=== PATIENT | male | born 1955 ===

== ENCOUNTER 2018-04-22 17:31 | Emergency (ER) | payer MEDICAID, OTHER ==
[2018-04-22 17:31] VITALS: BMI 25.0
[2018-04-22 17:43] VITALS: TEMP 97.9
[2018-04-22] MEDS ORDERED: DiphenhydrAMINE 50 mg/ml Inj IVP ONE (18:06)
--- NOTE | 2018-04-22 18:15 | ED PDOC ---
Arrival/HPI - General Chief Complaint: Headache Time Seen by Provider: 04/22/18 17:38 Historian: Patient - History of Present Illness Narrative History of Present Illness (Text): 04/22/18 18:07 62yo male with no pmhx who present with complaint of sharp left temporal headache. The family member by the bedside states he has been having this headache intermittently for months now. States he made appointment with a Doctor last week and his appointment is for next week. States he takes Aleve with some temporary relieve. Denies focal weakness, eye pain, visual changes, dizziness, trauma, neck pain, nuchal rigity, rash, chest pain, SOB, slurred speech, photophobia, nausea, vomiting, any other complaint. Past Medical History - Provider Review Nursing Documentation Reviewed: Yes - Cardiac Hx Cardiac Disorders: No - Pulmonary Hx Respiratory Disorders: No - Neurological Hx Neurological Disorder: No - HEENT Hx HEENT Disorder: No - Renal Hx Renal Disorder: No - Endocrine/Metabolic Hx Endocrine Disorders: No - Hematological/Oncological Hx Blood Disorders: No - Integumentary Hx Dermatological Disorder: No - Musculoskeletal/Rheumatological Hx Musculoskeletal Disorders: No - Gastrointestinal Hx Gastrointestinal Disorders: Yes Hx Gastroesophageal Reflux: Yes - Genitourinary/Gynecological Hx Genitourinary Disorders: No - Psychiatric Hx Psychophysiologic Disorder: No Hx Psychosis: No Hx Physical Abuse: No Hx Substance Use: No - Anesthesia Hx Anesthesia Reactions: No Hx Malignant Hyperthermia: No - Suicidal Assessment Feels Threatened In Home Enviroment: No Family/Social History - Physician Review Nursing Documentation Reviewed: Yes Family/Social History: Unknown Family HX Smoking Status: Light Smoker < 10 Cigarettes Daily Hx Alcohol Use: Yes Frequency of alcohol use: Socially Hx Substance Use: No Allergies/Home Meds Allergies/Adverse Reactions: Allergies No Known Allergies Allergy (Verified 04/22/18 17:37) Home Medications: Home Meds Medication Instructions Recorded Confirmed Omeprazole [Omeprazole] 40 mg PO DAILY 04/22/18 04/22/18 Review of Systems - Physician Review All systems were reviewed & negative as marked: Yes - Review of Systems Constitutional: Normal Eyes: Normal ENT: Normal Respiratory: Normal Cardiovascular: Normal Gastrointestinal: Normal Genitourinary Male: Normal Musculoskeletal: Normal Skin: Normal Neurological: Headache. absent: Dizziness, Focal Weakness, Gait Changes, Speech Changes Endocrine: Normal Hemo/Lymphatic: Normal Psychiatric: Normal Physical Exam Vital Signs Reviewed: Yes Vital Signs Temp Pulse Resp BP Pulse Ox 04/22/18 20:40 52 L 18 169/82 H 100 04/22/18 20:28 52 L 18 169/82 H 99 04/22/18 18:50 61 17 165/98 H 99 04/22/18 17:39 97.9 F 60 20 197/110 H 99 Temperature: Afebrile Blood Pressure: Hypertensive Pulse: Regular Respiratory Rate: Normal Appearance: Positive for: Well-Appearing, Non-Toxic, Comfortable Pain Distress: None Mental Status: Positive for: Alert and Oriented X 3 - Systems Exam Head: Present: Atraumatic, Normocephalic Pupils: Present: PERRL Extroacular Muscles: Present: EOMI Conjunctiva: Present: Normal Mouth: Present: Moist Mucous Membranes Neck: Present: Normal Range of Motion Respiratory/Chest: Present: Clear to Auscultation, Good Air Exchange. No: Respiratory Distress, Accessory Muscle Use Cardiovascular: Present: Regular Rate and Rhythm, Normal S1, S2. No: Murmurs Abdomen: No: Tenderness, Distention, Peritoneal Signs Back: Present: Normal Inspection Upper Extremity: Present: Normal Inspection. No: Cyanosis, Edema Lower Extremity: Present: Normal Inspection. No: Edema Neurological: Present: GCS=15, CN II-XII Intact, Speech Normal, Motor Func Grossly Intact, Normal Sensory Function, Normal Cerebellar Funct, Norm Deep Tendon Reflexes, Gait Normal, Memory Normal, Normal 2Pt Descrimination, Other ( No focal neurological deficit) Skin: Present: Warm, Dry, Normal Color. No: Rashes Psychiatric: Present: Alert, Oriented x 3, Normal Insight, Normal Concentration Medical Decision Making ED Course and Treatment: 04/23/18 01:10 Pt in ED for stated history. Elevated BP was noted likely secondary to pt's pain from his headache. The last time he took analgesia was in the morning. His lab was unremarkable Head CT IMPRESSION: 1. Mild chronic microvascular changes without acute intracranial finding. 2. Soft tissue gas adjacent to the skull base bilaterally is nonspecific and can be incidentally seen in older patients. If there is a history of recent injury to the chest or neck, additional images recommended. On reevaluation after medication in ED pt states his headache resolved. He remained neurologically intact and denied any eye symptoms. His neck was supple and he had no meningeal signs. His BP also improved. Result was DW the pt and he was given a rx of Fioricet and referred to Neuro. - Lab Interpretations Lab Results: 04/22/18 18:30 04/22/18 18:30 Lab Results 04/22/18 18:30: Sodium 142, Potassium 4.0, Chloride 108 H, Carbon Dioxide 26, Anion Gap 13, BUN 16, Creatinine 0.9, Est GFR ( Amer) > 60, Est GFR (Non- Af Amer) > 60, Random Glucose 113 H, Calcium 8.4, Total Bilirubin 0.4, AST 29, ALT 29, Alkaline Phosphatase 46, Lactate Dehydrogenase 584, Total Creatine Kinase 83, Troponin I < 0.01, Total Protein 6.9, Albumin 3.8, Globulin 3.1, Albumin/Globulin Ratio 1.3 04/22/18 18:30: PT 11.0, INR 0.97, APTT 32.6 04/22/18 18:30: WBC 7.5, RBC 4.81, Hgb 13.7 L, Hct 41.5 L, MCV 86.3, MCH 28.5, MCHC 33.0, RDW 14.7 H, Plt Count 114 L, MPV 12.1 H, Gran % 56.3, Lymph % (Auto) 36.7 H, [place] % (Auto) 5.8, Eos % (Auto) 0.9 L, Baso % (Auto) 0.3, Gran # 4.24, Lymph # (Auto) 2.8, [place] # (Auto) 0.4, Eos # (Auto) 0.1, Baso # (Auto) 0.02 - RAD Interpretation Radiology Orders: 04/22/18 18:05 HEAD W/O CONTRAST [CT] Stat - Medication Orders Current Medication Orders: Discontinued Medications Acetaminophen (Tylenol 325mg Tab) 975 mg PO STAT STA Stop: 04/22/18 18:06 Last Admin: 04/22/18 18:42 Dose: 975 mg MAR Pain/Vitals Document 04/22/18 18:42 SF (Rec: 04/22/18 18:42 [id number]) Pain Reassessment Is This A Pain ReAssessment? Yes Sleep Is patient sleeping during reassessment? No Presence of Pain Presence of Pain Yes Diphenhydramine HCl (Benadryl) 25 mg IVP ONCE ONE Stop: 04/22/18 18:07 Last Admin: 04/22/18 18:41 Dose: 25 mg IVP Administration Document 04/22/18 18:41 SF (Rec: 04/22/18 18:41 SF [id number]) Charges for Administration # of IVP Administrations 1 Sodium Chloride (Sodium Chloride 0.9%) 1,000 mls @ 250 mls/hr IV .Q4H ONE Stop: 04/22/18 22:15 Last Admin: 04/22/18 18:44 Dose: 250 mls/hr eMAR Start Stop Document 04/22/18 18:44 SF (Rec: 04/22/18 18:44 SF [id number]) Intravenous Solution Start Date 04/22/18 Start Time 18:44 End Date 04/22/18 End time 22:44 Total Infusion Time 240 Metoclopramide HCl (Reglan) 10 mg IVP STAT STA Stop: 04/22/18 18:06 Last Admin: 04/22/18 18:41 Dose: 10 mg IVP Administration Document 04/22/18 18:41 SF (Rec: 04/22/18 18:42 [id number]) Charges for Administration # of IVP Administrations 1 Disposition/Present on Arrival - Present on Arrival Any Indicators Present on Arrival: No History of DVT/PE: No History of Uncontrolled Diabetes: No Urinary Catheter: No History of Decub. Ulcer: No History Surgical Site Infection Following: None - Disposition Have Diagnosis and Disposition been Completed?: Yes Diagnosis: Headache Disposition: HOME/ ROUTINE Disposition Time: 20:30 Patient Plan: Discharge Condition: STABLE Discharge Instructions (ExitCare): Headache, Adult (DC) Additional Instructions: Follow up with your Doctor/Neurologist Return to ED for any new or worsening symptoms Prescriptions: Acetaminophen/Butalbital/Caf [Fioricet] 1 tab PO Q4 #15 tab Referrals: Efraín Echeverria MD [Primary Care Provider] - Follow up with primary Qian Aparicio MD [Staff Provider] - Follow up with primary Forms: [employer] ([place])
[2018-04-22] MEDS ORDERED: Sodium Chloride 0.9% 1,000 ML IV ONE (18:16)
[2018-04-22 18:48] LABS: BASO # 0.02 K/mm3 (0.0-2.0); BASO % 0.3 % (0.0-3.0); EOS # 0.1 (0.0-0.7); EOS % 0.9 % (1.5-5.0); GRAN # 4.24 (1.4-6.5); GRAN % 56.3 % (50.0-68.0); HEMOGLOBIN 13.7 g/dL (14.0-18.0); LYMPH # 2.8 (1.2-3.4); LYMPH % 36.7 % (22.0-35.0); MEAN CELL VOLUME 86.3 fl (80.0-105.0); MEAN CORPUSCULAR HEMOGLOBIN 28.5 pg (25.0-35.0); MEAN PLATELET VOLUME 12.1 fl (7.0-11.0); MONO # 0.4 (0.1-0.6); MONO % 5.8 % (1.0-6.0); RBC 4.81 10^6/uL (3.5-6.1); RED CELL DISTRIBUTION WIDTH 14.7 % (11.5-14.5); WHITE BLOOD COUNT 7.5 10^3/ul (4.5-11.0)
[2018-04-22 18:58] LABS: INR 0.97 (0.93-1.08); PARTIAL THROMBOPLASTIN TIME 32.6 Seconds (25.1-36.5)
[2018-04-22 19:00] LABS: ALB/GLOB RATIO 1.3 (1.1-1.8); ALBUMIN 3.8 g/dL (3.0-4.8); ALT/SGPT 29 U/L (7-56); AST/SGOT 29 U/L (17-59); BLOOD UREA NITROGEN 16 mg/dL (7-21); CALCIUM 8.4 mg/dL (8.4-10.5); GFR AFRICAN-AMERICAN > 60; GFR NON-AFRICAN AMERICAN > 60
[2018-04-22 19:11] LABS: TROPONIN I < 0.01 ng/mL
[2018-04-22 20:29] VITALS: BP 169/82; PULSE 52; RESP 18
[2018-04-22 21:07] VITALS: O2SAT 100
--- NOTE | 2018-04-23 08:20 | CT ---
Date of service: 04/22/2018 PROCEDURE: CT HEAD WITHOUT CONTRAST. HISTORY: headache COMPARISON: None available. TECHNIQUE: Axial computed tomography images were obtained through the head/brain without intravenous contrast. Radiation dose: Total exam DLP = 857.60 mGy-cm. This CT exam was performed using one or more of the following dose reduction techniques: Automated exposure control, adjustment of the mA and/or kV according to patient size, and/or use of iterative reconstruction technique. FINDINGS: HEMORRHAGE: No intracranial hemorrhage. BRAIN: No mass effect or edema. Minimal chronic periventricular white matter ischemic change. There is a solitary nodular cortical calcification in the right posterior parietal region common nonspecific. Possibly postinfectious/postinflammatory. VENTRICLES: Unremarkable. No hydrocephalus. CALVARIUM: Unremarkable. PARANASAL SINUSES: Minimal chronic left maxillary sinusitis. MASTOID AIR CELLS: Unremarkable as visualized. No inflammatory changes. OTHER FINDINGS: There is small amount of gas seen within the intermuscular planes of the right skull base greater than left. Possibility of an infectious inflammatory process must be considered and evaluation with maxillofacial CT should be considered. IMPRESSION: No intracranial mass, hemorrhage or evidence of acute infarct. Minimal chronic left maxillary sinusitis. Mild chronic periventricular white matter ischemic change. Gas in intermuscular planes of right skull base for which consideration of an infectious or inflammatory process should be considered. Further evaluation with maxillofacial CT with contrast is suggested. The preliminary findings for this examination were reported by [facility] at 7:53 p.m. on 04/22/2018. There is discordance of this report with the preliminary findings. Additional recommendation of maxillofacial CT has been made on the basis of this examination.
--- NOTE | 2018-04-23 19:05 | CARD ---
APPROVED REPORT Date of service: 04/22/2018 EKG Measurement Heart [id number] [id number] <Conclusion> Sinus bradycardia Minimal voltage criteria for LVH, may be normal variant Borderline ECG
== END 2018-04-22 20:40 | disposition home or self-care (01) ==
LOC: ED 17:31
DX: R51 Headache (principal); F17.210 Nicotine dependence, cigarettes, uncomplicated
CPT/HCPCS: 70450; 80053; 82550; 83615; 84484; 85025; 85610; 85730; 93005; 96361; 96374; 96375; 99285; J1200; J2765; J7030